=== PATIENT | female | born 1925 | race Caucasian/White ===

== ENCOUNTER → 2016-02-26 | Day surgery (SDC) | payer MEDICARE ==
[~2016-02-26] VITALS: Ht 147.3 cm; Wt 68.5 kg
[~2016-02-26] MED LIST: /WARF25TA; ACET50TA PO; ACET65TA; ACETYLCHOLINE OPHTH SOLN 1% 2ML As Ordered ONE; ACETYLCHOLINE OPHTH SOLN 1% 2ML XX ONE; ARTI99.0 OU; AZIT250T3 PO; BALANCED SALT IRRIGATION SOLUTION 500ML BAG (FOR OR EYE MACHINE) As Ordered ONE; BALANCED SALT IRRIGATION SOLUTION 500ML BAG (FOR OR EYE MACHINE) XX ONE; CALC12502; CALC600T10 OR; CALC600T10 PO; CEFUROXIME 1MG/0.1ML INTRACAMERAL INJ As Ordered ONE; CEFUROXIME 1MG/0.1ML INTRACAMERAL INJ ICAM ONE; CEFUROXIME 1MG/0.1ML INTRACAMERAL INJ XX ONE; COZA100T OR; HEALON DUET (HEALON 10MG/ML 0.55ML & HEALON ENDOCOAT 30MG/ML 0.85ML) As Ordered ONE; HEALON DUET (HEALON 10MG/ML 0.55ML & HEALON ENDOCOAT 30MG/ML 0.85ML) XX ONE; I CAP PO; ICAPCAP; IMOD2TAB14 PO; LEVA500T PO; LEVO750T PO; LIDOCAINE 0.75%/EPINEPHRINE 0.025% IN BSS 1ML SYR INTRACAMERAL (OR ONLY) XX ONE; LIDOCAINE 1% SDV 5 ML VIAL As Ordered ONE; LIDOCAINE 1% SDV 5 ML VIAL XX ONE; LIDOCAINE 4% INJ 5 ML AMP OU ONE; LOSA100T36 PO; LOSA50TA20 PO; LOSARTAN; MACROBID PO; MIDAZOLAM INJ 2 MG/2 ML VIAL (J2250) As Ordered ONE; MUCI600T34 PO; MULTCAP PO; MULTIVIT PO; NYST50SS SS; OFLOXACIN 0.3 % (OCUFLOX) OPTH SOL 5ML OD ONE; OXYBUTYNIN PO; PERC5TAB8; PHENYLEPHRINE 2.5% OPHTH SOL 2ML OD ONE; POVIDONE-IODINE 5% OPHTH PREP SOL 30ML As Ordered ONE; PRED10TA PO; PRIL20CA OR; PRIN5TAB; PROBCAP4 PO; PROPARACAINE 0.5% OPHTH SOL 15ML OD ONE; PROT1TAB2 PO; SALI0.653; SLOWTAB3 PO; TOBRADEX OPHTH OINT 3.5 GM As Ordered ONE; TOBRADEX OPHTH OINT 3.5 GM XX ONE; TROPICAMIDE 1% OPHTH SOLN 2 ML OD ONE; TUMS500C PO; VITMTA PO; fentaNYL 100 MCG/2 ML INJECTION (J3010) As Ordered ONE
[2016-02-26 12:45] VITALS: BP 137/63
--- NOTE | 2016-02-28 11:31 | RO ---
DATE OF PROCEDURE: 02/26/2016 PREOPERATIVE DIAGNOSIS: Visually significant nuclear sclerotic cataract right eye. POSTOPERATIVE DIAGNOSIS: Visually significant nuclear sclerotic cataract right eye. PROCEDURE: Cataract extraction with use of phacoemulsification and placement of intraocular lens ZC B00 21.5 diopters, right eye. SURGEON: Chris Stoll DO FACILITATOR: ANESTHESIA: Local with monitored anesthesia care (MAC). COMPLICATIONS: None. POSTOPERATIVE CONDITION: Stable. INDICATION FOR SURGERY: Blurred vision right eye affecting patient's activities of daily living. DESCRIPTION OF PROCEDURE: The patient was seen in the preoperative area and properly identified. The correct operative eye was identified and marked. Attention was turned to that eye. The patient received topical antibiotics in the preoperative area. The patient then received topical dilating drops consisting of tropicamide and phenylephrine. The patient was then transferred to the operating room. The correct side was reidentified. The patient received topical anesthetics and antibiotics on the surface of the eye. The eye was prepped and draped in a sterile fashion. The upper and lower eyelids were isolated with Tegaderm tape, and the lids were held open with an adjustable speculum. Using a sideport blade, a paracentesis incision was made. Intraocular preservative-free lidocaine was then injected into the anterior chamber. Viscoelastic was then injected into the anterior chamber through the paracentesis. Using a 2.75 mm sharp-tipped keratome, the anterior chamber was entered via a temporal clear corneal incision. A continuous curvilinear capsulorrhexis was created with the aid of a 26-gauge cystotome and Utrata forceps. Hydrodissection was performed with balanced salt solution (BSS) on a blunt cannula until the nucleus was freely mobile. The crystalline lens was phacoemulsified and aspirated. Additional cohesive viscoelastic was placed into the capsular bag to deepen it. A ZC B00 21.5 diopters lens was placed into the capsular bag and confirmed by visualizing the continuous curvilinear capsulorrhexis. Additional irrigation and aspiration was used to remove cortical material and remaining viscoelastic. The clear corneal incision was hydrated with BSS on a blunt cannula. The lens was well positioned. The incisions were then tested for leaks and found to be negative. The eye was then palpated for appropriate pressure and adjusted accordingly with BSS. Several drops of antibiotics and Iopidine were placed in the eye. The eyelid speculum was then carefully removed. Maxitrol ointment was placed in the eye. An eye patch and shield were then secured over the eye. The patient tolerated the procedure well and was discharged to the recovery unit in a stable condition. Edited 02/28/2016 aml
== END | disposition home or self-care (01) ==
LOC: M SDC 10:30
PROVIDERS: ATTEND Ophthalmology
DX: H25.11 Age-related nuclear cataract, right eye (principal); I10 Essential (primary) hypertension; E11.9 Type 2 diabetes mellitus without complications; H35.30 Unspecified macular degeneration; M81.0 Age-related osteoporosis without current pathological fracture; E78.5 Hyperlipidemia, unspecified; Z79.899 Other long term (current) drug therapy; Z79.51 Long term (current) use of inhaled steroids; Z87.891 Personal history of nicotine dependence
CPT/HCPCS: 66984; J2250; J3010; V2632

== ENCOUNTER → 2016-03-11 | Day surgery (SDC) | payer MEDICARE ==
[~2016-03-11] VITALS: Ht 147.3 cm; Wt 68.0 kg
[~2016-03-11] MED LIST changes: +ACETAMINOPHEN TAB 650MG DOSE (2X325MG) PO PRN; -CEFUROXIME 1MG/0.1ML INTRACAMERAL INJ ICAM ONE; +D5W/0.2% SODIUM CHLORIDE 1,000 ML IV SCH; +HEALON DUET (HEALON 10MG/ML 0.55ML & HEALON ENDOCOAT 30MG/ML 0.85ML) IO ONE; -HEALON DUET (HEALON 10MG/ML 0.55ML & HEALON ENDOCOAT 30MG/ML 0.85ML) XX ONE; -IMOD2TAB14 PO; +IMOD2TAB16 PO; +LIDOCAINE 0.75%/EPINEPHRINE 0.025% IN BSS 1ML SYR INTRACAMERAL (OR ONLY) As Ordered ONE; -LIDOCAINE 1% SDV 5 ML VIAL XX ONE; -OFLOXACIN 0.3 % (OCUFLOX) OPTH SOL 5ML OD ONE; +OFLOXACIN 0.3 % (OCUFLOX) OPTH SOL 5ML XX ONE; +ONDANSETRON 4MG/2ML VIAL (J2405) IV PRN; -PHENYLEPHRINE 2.5% OPHTH SOL 2ML OD ONE; +PHENYLEPHRINE 2.5% OPHTH SOL 2ML XX ONE; -PROPARACAINE 0.5% OPHTH SOL 15ML OD ONE; +PROPARACAINE 0.5% OPHTH SOL 15ML XX ONE; -TOBRADEX OPHTH OINT 3.5 GM XX ONE; -TROPICAMIDE 1% OPHTH SOLN 2 ML OD ONE; +TROPICAMIDE 1% OPHTH SOLN 2 ML XX ONE
[2016-03-11 09:40] VITALS: BP 130/58
--- NOTE | 2016-03-12 07:28 | RO ---
DATE OF PROCEDURE: 03/11/2016 PREOPERATIVE DIAGNOSIS: 1. Visually significant nuclear sclerotic cataract left eye. 2. Advanced geographic atrophic macular scar POSTOPERATIVE DIAGNOSIS: 1. Visually significant nuclear sclerotic cataract left eye. 2. Advanced geographic atrophic macular scar PROCEDURE: Cataract extraction with use of phacoemulsification and placement of intraocular lens ZCB00, 19.0 diopter left eye. SURGEON: Chris Stoll DO MILL ATTENDANT: None ANESTHESIA: Local with monitored anesthesia care (MAC). COMPLICATIONS: None. POSTOPERATIVE CONDITION: Stable. INDICATION FOR SURGERY: Blurred vision left eye affecting patient's activities of daily living. DESCRIPTION OF PROCEDURE: The patient was seen in the preoperative area and properly identified. The correct operative eye was identified and marked. Attention was turned to that eye. The patient received topical antibiotics in the preoperative area. The patient then received topical dilating drops consisting of tropicamide and phenylephrine. The patient was then transferred to the operating room. The correct side was reidentified. The patient received topical anesthetics and antibiotics on the surface of the eye. The eye was prepped and draped in a sterile fashion. The upper and lower eyelids were isolated with Tegaderm tape, and the lids were held open with an adjustable speculum. Using a sideport blade, a paracentesis incision was made. Intraocular preservative-free lidocaine was then injected into the anterior chamber. Viscoelastic was then injected into the anterior chamber through the paracentesis. Using a 2.65 mm sharp-tipped keratome, the anterior chamber was entered via a temporal clear corneal incision. A continuous curvilinear capsulorrhexis was created with the aid of a 26-gauge cystotome and Utrata forceps. Hydrodissection was performed with balanced salt solution (BSS) on a blunt cannula until the nucleus was freely mobile. The crystalline lens was phacoemulsified and aspirated. Additional cohesive viscoelastic was placed into the capsular bag to deepen it. A ZCB00, 19.0 diopter lens was placed into the capsular bag and confirmed by visualizing the continuous curvilinear capsulorrhexis. Additional irrigation and aspiration was used to remove cortical material and remaining viscoelastic. The clear corneal incision was hydrated with BSS on a blunt cannula. The lens was well positioned. The incisions were then tested for leaks and found to be negative. The eye was then palpated for appropriate pressure and adjusted accordingly with BSS. Several drops of antibiotics and Iopidine were placed in the eye. The eyelid speculum was then carefully removed. Maxitrol ointment was placed in the eye. An eye patch and shield were then secured over the eye. The patient tolerated the procedure well and was discharged to the recovery unit in a stable condition. MAGDALENO
== END | disposition home or self-care (01) ==
LOC: M SDC 07:37
PROVIDERS: ATTEND Ophthalmology
DX: H25.12 Age-related nuclear cataract, left eye (principal); H35.319 Nonexudative age-related macular degeneration, unspecified eye; I10 Essential (primary) hypertension; J44.9 Chronic obstructive pulmonary disease, unspecified; Z79.899 Other long term (current) drug therapy; Z79.51 Long term (current) use of inhaled steroids
CPT/HCPCS: 66984; J2250; J3010; V2632